=== PATIENT | male | born 1965 | race Caucasian/White ===

== ENCOUNTER → 2023-05-29 06:19 | Day surgery (SDC) | payer BC, SELFPAY | LOC: GI 06:19 | PROVIDERS: ATTENDING PHYSICIAN Surgery | DX: Z12.11 Encounter for screening for malignant neoplasm of colon (principal); D12.3 Benign neoplasm of transverse colon; K63.5 Polyp of colon; D12.8 Benign neoplasm of rectum; K62.1 Rectal polyp | CPT/HCPCS: 45385; 45380; 88305 ==